=== PATIENT | male | born 1990 | race Two or more races ===

== ENCOUNTER 2024-04-20 11:00 | Outpatient (CLI) | payer MEDICARE, MEDICAID ==
[2024-04-20 11:20] VITALS: BP 128/75; PULSE 81; RESP 20; TEMP 97.9; O2SAT 97
[2024-04-20 18:36] LABS: GLUCOMETER DEV NAME(LOC) POC.BV; POC SARS-COV2 AG, FIA NEGATIVE (NEGATIVE)
[2024-04-24] MEDS ORDERED: ESCI-8 PO (11:12)
== END 2024-04-20 17:40 | disposition admitted as inpatient to this hospital (09) ==
LOC: CSU 11:00 → EDSTATUS 05-17 12:52
PROVIDERS: ATTEND Nurse Practitioner Acute Care
DX: F39 Unspecified mood [affective] disorder (principal); Z20.822 Contact with and (suspected) exposure to COVID-19
CPT/HCPCS: 90839; 90840